=== PATIENT | female | born 1975 | race Caucasian/White ===

== ENCOUNTER 2020-08-27 10:32 | Emergency (ER) | payer SELFPAY ==
[~2020-08-27] VITALS: Ht 144.8 cm; Wt 70.3 kg
[2020-08-27 10:37] VITALS: BP 132/87
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
--- NOTE | 2020-08-27 11:21 | NUR ---
DR RIZZO AT BESIDE EVALUATING PT.
[2020-08-27] MEDS ORDERED: IBUPROFEN 600 MG TAB PO ONE (11:30)
[2020-08-27 12:07] VITALS: BP 132/87
--- NOTE | 2020-08-27 12:08 | NUR ---
Patient discharged with v/s stable. Written and verbal after care instructions given and explained. Patient alert, oriented and verbalized understanding of instructions. Ambulatory with steady gait. All questions addressed prior to discharge. ID band removed. Patient advised to follow up with PMD. Rx of Motrin 600mg given. Patient educated on indication of medication including possible reaction and side effects. Opportunity to ask questions provided and answered.
== END 2020-08-27 12:08 | disposition home or self-care (01) ==
LOC: MED 10:41
DX: S20.212A Contusion of left front wall of thorax, initial encounter (principal); R07.9 Chest pain, unspecified; V49.9XXA Car occupant (driver) (passenger) injured in unspecified traffic accident, initial encounter; Y93.89 Activity, other specified; Y92.89 Other specified places as the place of occurrence of the external cause; Y99.8 Other external cause status
CPT/HCPCS: 71046; 81002; 81025; 99283